=== PATIENT | female | born 1990 | race Caucasian/White ===

== ENCOUNTER 2018-08-28 04:46 | Emergency (ER) | payer SELFPAY ==
[~2018-08-28] VITALS: Ht 162.6 cm; Wt 74.3 kg
[2018-08-28 04:55] VITALS: BP 149/83; PULSE 82; RESP 19; Ht 162.6 cm; Wt 74.3 kg
== END 2018-08-28 07:03 | disposition left against medical advice (07) ==
LOC: FTE 04:46
DX: Z53.21 Procedure and treatment not carried out due to patient leaving prior to being seen by health care provider (principal)

== ENCOUNTER 2018-09-07 12:27 | Emergency (ER) | payer MEDICAID ==
[~2018-09-07] VITALS: Ht 160 cm; Wt 72.8 kg
[2018-09-07 12:34] VITALS: Ht 160 cm; Wt 72.8 kg
[2018-09-07] MEDS ORDERED: ACETAMINOPHEN 500 MG TAB PO STA (13:52)
[2018-09-07] MEDS ORDERED: KETOROLAC 60 MG INJ IM STA (13:52)
[2018-09-07] MEDS ORDERED: TRAM50TA2 PO (15:20)
[2018-09-07] MEDS ORDERED: CYCL10TA7 PO (15:20)
[2018-09-07] MEDS ORDERED: NAPR-985 PO (15:20)
[2018-09-07] MEDS ORDERED: PRED20TA PO (15:20)
[2018-09-07] MEDS ORDERED: DEXAMETHASONE 10 MG/ML 1 ML INJ IM ONE (15:30)
[2018-09-07 15:58] VITALS: BP 128/65; PULSE 78; RESP 16
--- NOTE | 2018-09-07 18:36 | ERD ---
ER Documentation Chief Complaint Chief Complaint lower back pain, mid+R AP since 0800. no trauma/ lifting, no NVD, no dysuri HPI History of Present Illness: 27-year-old female with no past medical history coming in today with complaint of bilateral lower back pain. Patient reports that pain did wraparound to mid right abdomen but is no longer present. Patient denies trauma, lifting. Patient denies nausea, vomiting, diarrhea, abdominal pain at this moment. Patient denies genitourinary symptoms. Patient reports pain is constant. At home pharmacological/nonpharmacological treatment for symptoms: Denies Denies social concerns; Denies recent foreign travel ROS All systems reviewed and are negative except as per history of present illness. Medications Home Meds Active Scripts Tramadol HCl (Tramadol HCl) 50 Mg Tablet, 50 MG PO Q8 PRN for PAIN, #10 TAB Prov:LESLEY ALANIS V [employer] 09/07/18 Prednisone* (Prednisone*) 20 Mg Tab, 40 MG PO DAILY for lower back pain flareup for 4 Days, TAB Prov:LESLEY ALANIS V [employer] 09/07/18 Naproxen* (Naprosyn*) 500 Mg Tablet, 500 MG PO BID PRN for PAIN AND/OR INFLAMMATION, #30 TAB Prov:LESLEY ALANIS [employer] 09/07/18 Cyclobenzaprine Hcl* (Cyclobenzaprine Hcl*) 10 Mg Tablet, 10 MG PO TID for muscle pain/tightness/spasm, #15 TAB Prov:LESLEY ALANIS NP 09/07/18 Allergies Allergies: Coded Allergies: No Known Allergy (Unverified , 08/28/18) PMhx/Soc Medical and Surgical Hx: pt denies Medical Hx, pt denies Surgical Hx Hx Alcohol Use: No Hx Substance Use: No Hx Tobacco Use: No Smoking Status: Never smoker FmHx Family History: No diabetes, No coronary disease Physical Exam Vitals Vital Signs Date Temp Pulse Resp B/P (MAP) Pulse Ox O2 O2 Flow FiO2 Time Delivery Rate 09/07/18 98.1 78 16 128/65 98 Room Air 15:58 (86) 09/07/18 99.7 90 16 135/82 98 12:34 (99) Physical Exam Const: No acute distress, patient grimacing with movement Head: Atraumatic Eyes: Normal Conjunctiva ENT: Normal External Ears, Nose and Mouth. Neck: Full range of motion. No meningismus. Resp: Clear to auscultation bilaterally Cardio: Regular rate and rhythm, no murmurs Abd: Soft, non tender, non distended. Normal bowel sounds Skin: No petechiae or rashes Back: No midline tenderness; tenderness to palpation over bilateral lower lumbar Ext: No cyanosis, or edema Neur: Awake and alert Psych: Normal Mood and Affect Results 24 hrs Laboratory Tests Test 09/07/18 14:03 09/07/18 14:06 09/07/18 14:15 Bedside Urine pH (LAB) 6.0 Bedside Urine Protein (LAB) Negative Bedside Urine Glucose (UA) Negative Bedside Urine Ketones (LAB) Negative Bedside Urine Blood Negative Bedside Urine Nitrite (LAB) Negative Bedside Urine Leukocyte Esterase Trace (L POC Beta HCG, Qualitative NEGATIVE Urine Color STRAW Urine Clarity SLIGHTLY CLOUDY Urine pH 5.0 Urine Specific [place] 1.014 Urine Ketones NEGATIVE mg/dL Urine Nitrite NEGATIVE mg/dL Urine Bilirubin NEGATIVE mg/dL Urine Urobilinogen NEGATIVE mg/dL Urine Leukocyte Esterase TRACE Guera/ul Urine Microscopic RBC 1 /HPF Urine Microscopic WBC 4 /HPF Urine Squamous Epithelial Cells FEW /HPF Urine Bacteria FEW /HPF Urine Hemoglobin NEGATIVE mg/dL Urine Glucose NEGATIVE mg/dL Urine Total Protein NEGATIVE mg/dl Current Medications Medications Dose Sig/Wesley Start Time Status Last (Trade) Ordered Route PRN Stop Time Admin Dose Reason Admin Ketorolac 60 mg ONCE STAT 09/07/18 DC 09/07/18 Tromethamine IM 13:52 14:11 (Toradol) 09/07/18 13:55 1,000 mg ONCE STAT 09/07/18 DC 09/07/18 Acetaminophen PO 13:52 14:11 (Tylenol 09/07/18 13:55 Tab) 10 mg ONCE ONCE 09/07/18 DC 09/07/18 Dexamethasone IM 15:30 15:54 (Decadron) 09/07/18 15:31 Procedures/MDM ED course includes a thorough examination and history. Medications: Ketorolac; no opiates due to patient driving Imaging: Abdomen KUB Labs: Urinalysis, urine Low suspicion for life-threatening medical emergency. Low suspicion for acute abdominal emergency/intestinal/genitourinary requires hospitalization or immediate surgical intervention. Patient without any type of genitourinary symptoms, low suspicion for urinary tract infection despite positive leukocyte esterase, appears to be dirty catch sample. Otherwise healthy patient presenting with constellation of symptoms likely representing uncomplicated bilateral lower back pain as characterized by history, physical exam findings, radiologic findings, lab findings. Abdomen KUB report shows no acute abnormal findings. Urinalysis with trace leukocyte esterase, few bacteria. Urine negative. No respiratory distress, otherwise relatively well appearing and nontoxic. Patient educated on strict return precautions, patient with initial management temperature of 99.7, possible febrile etiology but without any signs of infection. Patient educated on diagnoses, prescriptions, follow-up care, return precautions. Strict return precautions given for worsening condition; questions answered discharge. Disposition for discharge with followup in 2 days with PCP/clinic. Departure Diagnosis: Primary Impression: Strain of muscle, fascia and tendon of lower back, initial enc... Additional Impression: Lower back pain Chronicity: acute Back pain laterality: bilateral Sciatica presence: without sciatica Qualified Codes: M54.5 - Low back pain Condition: Stable Patient Instructions: Muscle Spasm, Back Pain (Acute Or Chronic) Referrals: [facility] YOU HAVE RECEIVED A MEDICAL SCREENING EXAM AND THE RESULTS INDICATE THAT YOU DO NOT HAVE A CONDITION THAT REQUIRES URGENT TREATMENT IN THE EMERGENCY DEPARTMENT. FURTHER EVALUATION AND TREATMENT OF YOUR CONDITION CAN WAIT UNTIL YOU ARE SEEN IN YOUR DOCTORS OFFICE WITHIN THE NEXT 1-2 DAYS. IT IS YOUR RESPONSIBILITY TO MAKE AN APPOINTMENT FOR FOLOW-UP CARE. IF YOU HAVE A PRIMARY DOCTOR --you should call your primary doctor and schedule an appointment IF YOU DO NOT HAVE A PRIMARY DOCTOR YOU CAN CALL OUR PHYSICIAN REFERRAL HOTLINE AT IF YOU CAN NOT AFFORD TO SEE A PHYSICIAN YOU CAN CHOSE FROM THE FOLLOWING [facility] [address] [facility] [address] [facility] [address] [facility] [address] [facility] [address] [facility]. [facility]. [address] [facility]. [facility] YOU HAVE RECEIVED A MEDICAL SCREENING EXAM AND THE RESULTS INDICATE THAT YOU DO NOT HAVE A CONDITION THAT REQUIRES URGENT TREATMENT IN THE EMERGENCY DEPARTMENT. FURTHER EVALUATION AND TREATMENT OF YOUR CONDITION CAN WAIT UNTIL YOU ARE SEEN IN YOUR DOCTORS OFFICE WITHIN THE NEXT 1-2 DAYS. IT IS YOUR RESPONSIBILITY TO MAKE AN APPOINTMENT FOR FOLOW-UP CARE. IF YOU HAVE A PRIMARY DOCTOR --you should call your primary doctor and schedule and appointment IF YOU DO NOT HAVE A PRIMARY DOCTOR YOU CAN CALL OUR PHYSICIAN REFERRAL HOTLINE AT . IF YOU CAN NOT AFFORD TO SEE A PHYSICIAN YOU CAN CHOSE FROM THE FOLLOWING [facility] INSTITUTIONS: [facility] [id number] [place] [address] [facility] [address] [place] [address] [facility] [address] [place] [address] Additional Instructions: Thank you very much for allowing us to participate in your care. Your health and safety is our top priority at [facility]. It is important to read all discharge instructions and education provided in your discharge packet. Call your primary care doctor TOMORROW for an appointment during the next 2-4 days and bring all the information and medications prescribed. Have prescriptions filled and follow precisely the directions on the label. -Cyclobenzaprine as a muscle relaxer; take this medication daily as prescribed for the next week to help with your muscle spasm. Do not operate heavy machinery while taking this medication; It may make you drowsy. -Prednisone is a steroid, which decreases inflammation; uses medication every morning with breakfast to decrease inflammation associated with your back -Naproxen is a anti-inflammatory/pain medication; take this medication daily as prescribed for the next week to help with swelling/inflammation/pain. -Tramadol is an opiate pain medication; take this medication as needed for moderate to severe pain. No operating of heavy machinery while taking this medication. It may cause drowsiness. If the symptoms get worse and your provider is unavailable, return to the Emergency Department immediately. LESLEY ALANIS NP Sep 07, 2018 18:36
== END 2018-09-07 15:58 | disposition home or self-care (01) ==
LOC: FTE 12:27
DX: S39.012A Strain of muscle, fascia and tendon of lower back, initial encounter (principal); X58.XXXA Exposure to other specified factors, initial encounter; Y92.9 Unspecified place or not applicable
CPT/HCPCS: 74019; 81001; 81025; 87210; 96372; J1100; J1885; Z7502; Z7610; 81003